=== PATIENT | female | born 1945 | race Caucasian/White ===

== ENCOUNTER 2017-06-28 07:06 | Observation (INO) | payer MEDICARE ==
--- NOTE | 2017-06-25 02:14 | HP ---
AMENDED REPORT NOW INCLUDES COSIGNER DESIGNATION CC: Connie Montemayor MD, at [facility]; Saritha Alfred MD, at [facility] * ADMISSION HISTORY AND PHYSICAL: DATE OF ADMISSION: 06/28/17 ATTENDING SURGEON: Estela Lopez MD * (DICTATED BY LOYDA WILLIAMSON) CHIEF COMPLAINT: Right breast cancer. HISTORY OF PRESENT ILLNESS: This is a 71-year-old female who around December of this year noted some nipple changes of the right breast. Specifically, she noted that the nipple was becoming more inverted. She had not had any prior history of that. She also noted some new lumpiness of the right breast. She had undergone routine screening mammography in October 2016, which was a negative study. She was seen by Dr. Lopez in March of this year and sent for diagnostic mammogram and ultrasound, both of which were unrevealing. Because of persistent changes, an MRI was obtained on 05/22/17 showing a mass at the 12 o'clock position of the right breast measuring 3.2 x 2.2 x 2.1 cm and located 5 cm from the nipple. There were noted to be additional smaller lesions, which also showed persistent enhancement; in addition, a small area of persistent enhancement was noted in the left breast at the 5:30 position measuring 0.4 cm and located 3 cm from the nipple. Recommendation was for 6-month followup with repeat MRI. Ultrasound-guided biopsy of the MRI image lesion of the right breast was performed on 06/12/17 showing invasive lobular carcinoma (see separate report). The patient has had prior stereotactic biopsy of the left breast for microcalcifications in 2014. This biopsy was benign and the area of microcalcifications was in the inferomedial aspect of the left breast. She has not had any additional personal breast history. She has a niece who recently underwent bilateral mastectomy for perilobular carcinoma. She also has a paternal first cousin, living, with ovarian cancer. The patient was seen most recently today and on 06/14/[address] Lopez, who has discussed with her the indications for surgery, the risks, benefits, and alternatives. She has declined offer for plastic surgery referral for possible reconstruction. She would like to proceed as scheduled with right mastectomy with sentinel lymph node biopsy. She does have a Medical Oncology consultation with Dr. Alfred tomorrow, 06/25/17. PAST MEDICAL HISTORY: 1. Hypothyroidism (status post right hemithyroidectomy for papillary carcinoma) . 2. Hyperlipidemia. 3. Depression. PAST SURGICAL HISTORY: Previous surgeries include right hemithyroidectomy with isthmusectomy in 2008 for papillary carcinoma. She did not require any additional therapy. She is maintained on thyroid replacement. She also underwent ANYA with BSO for endometrial disease with prior resection of an endometrial related cyst. She is also status post tonsillectomy and pilonidal cystectomy. No reported surgical or anesthesia problems. CURRENT MEDICATIONS: 1. Levothyroxine 75 mcg once daily. 2. Atorvastatin 10 mg 1 half tablet once daily. 3. Sertraline 50 mg 1-1/2 tablets daily. 4. Aspirin 81 mg daily (she has stopped for surgery, her last dose being ). 5. Fish oil 1000 mg once daily. 6. Vitamin D 2000 IU once daily. 7. Multivitamin once daily. 8. Vitamin B12 1000 mcg sublingual every other day. She also takes the following supplements: flaxseed, sonia seed, psyllium, and cinnamon. DRUG ALLERGIES: None known. FAMILY HISTORY: As noted above. No reported family history of anesthesia problems, bleeding or clotting disorders. SOCIAL HISTORY: The patient is single and lives alone. 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 She denies other recreational drug use. REVIEW OF SYSTEMS: General: No recent constitutional symptoms or acute illnesses other than described above. She did have a recent presumed bug bite to the posterior aspect of her right lower extremity with associated pruritus, but this seems to be improving. HEENT: No problems reported. Cardiovascular: She was evaluated for chest pain around 2012 and had a negative nuclear stress test at that time. She has had good exercise tolerance since then with no additional problems reported. Respiratory: No history of asthma, chronic cough, or shortness of breath. GI: No problems reported. Colonoscopy done on 06/10/17 with normal report and no further colonoscopy screening indicated. : No problems reported. Endocrine: Thyroid replacement as noted above with surveillance thyroid ultrasound on a prescribed basis. No history of diabetes. Musculoskeletal: She does have a history of osteoporosis, but no related fractures. She is fairly active in terms of weightbearing exercise. PHYSICAL EXAMINATION GENERAL: Well-nourished, well-developed female in no acute distress. VITAL SIGNS: Height 64 inches, weight 145 pounds, blood pressure 100/68, pulse 78, respirations 16. HEENT: Pupils are equal, round, and reactive. EOMs intact. No conjunctival pallor. Oropharynx: Teeth in good repair. No intraoral lesions. NECK: No lymphadenopathy, thyromegaly, or masses. LUNGS: Clear to auscultation. No rales or wheezes. HEART: Regular rate and rhythm. No murmur noted. BREASTS: Not re-examined. Per Dr. Lopez's exam most recently, there was some resolving ecchymosis in the medial aspect of the right breast. There is some thickening in the area superior to the nipple, which is notable for inversion. No other palpable masses. No palpable axillary lymphadenopathy. ABDOMEN: Soft, nontender to palpation. No palpable masses or organomegaly. GENITALIA: Not done. RECTAL: Not done. BACK: No spinous process or CVA tenderness. EXTREMITIES: No edema. NEUROLOGICAL: Grossly intact. SKIN: Warm and dry. No suspicious rashes or lesions noted. There is an area of erythema around a presumed insect bite in the posterior aspect of her right leg. The area of erythema measuring approximately 2 x 4 cm. There is no evidence of cellulitis. IMPRESSION: Right breast cancer. PLAN: Right mastectomy with sentinel lymph node biopsy. LOYDA WILLIAMSON ORIGINAL ESIGN DATE/TIME: 06/25/17 0828 [id number] #: [id number] MTDD
[~2017-06-28 07:06] MED LIST: Buffered Lidocaine 0.9% SYRIN* 5 ML/SYR SYRINGE INTRADERM ONE; Famotidine IV* 10 MG/ML 2 ML (20 mg) IV ONE
[2017-06-28] MEDS ORDERED: Lidocaine 2.5%/Prilocain 2.5%* 5 GM TUBE ONE (07:14)
[2017-06-28] MEDS ORDERED: Heparin VIAL(*) 5000 UNITS/ML VIAL (FIVE THOUSAND) ONE (11:51)
[2017-06-28] MEDS ORDERED: Famotidine IV* 10 MG/ML 2 ML (20 mg) ONE (11:51)
[2017-06-28] MEDS ORDERED: ceFAZolin 2 GM PREMIX(*) 2 GM/50 ML BAG IVPB ONE (11:51)
--- NOTE | 2017-06-28 12:04 | RAD ---
Indication: Right breast cancer. Gladstone node localization was performed after intravenous injection 0.3 mCi of technetium 99m sulfur colloid. At 3 hours there is no evidence of a sentinel lymph node. IMPRESSION: Gladstone lymph node could not be localized.
[2017-06-28] MEDS ORDERED: Methylene Blue 1% (ANTIDOTE)* 10 MG/ML 1 ML SDV VIAL IVPB ONE (12:05)
[2017-06-28] MEDS ORDERED: Methylene Blue 0.5 %* 50 MG/10 ML AMP IV ONE (12:06)
[2017-06-28] MEDS ORDERED: oxyCODONE TAB* 5 MG TAB PO PRN (12:20)
[2017-06-28] MEDS ORDERED: DiMENhydriNATE IV* 50 MG/ML VIAL IV PUSH PRN (12:20)
[2017-06-28] MEDS ORDERED: Acetaminophen IV 1GM/100ML * 100 ML IVPB ONE (12:20)
[2017-06-28] MEDS ORDERED: HYDROmorphone* 1 MG/ML 1 ML SYR IV PRN (12:20)
[2017-06-28] MEDS ORDERED: Lidocaine 1% INJ* 10 MG/ML 30 ML SDV ONE (12:24)
[2017-06-28] MEDS ORDERED: Bupivacaine 0.5% W/EPI SDV* 10 ML VIAL INJ ONE (12:24)
[2017-06-28] MEDS ORDERED: Midazolam* 1 MG/ML 5 ML VIAL (5 MG) ONE (12:42)
[2017-06-28] MEDS ORDERED: fentaNYL* 50 MCG/ML 2 ML VIAL (100 MCG VIAL) ONE ×2 (12:50→13:40)
[2017-06-28] MEDS ORDERED: Bupivacaine 0.25% SDV* 30 ML ONE (12:57)
[2017-06-28] MEDS ORDERED: Propofol* 10 MG/ML 20 ML BTL IV PUSH ONE (13:04)
[2017-06-28] MEDS ORDERED: Dexamethasone IV* 4 MG/ML 1 ML (4 MG) ONE (13:04)
[2017-06-28] MEDS ORDERED: Ondansetron INJ* 2 MG/ML VIAL ONE (13:04)
[2017-06-28] MEDS ORDERED: Ketorolac INJ* 30 MG/ML 1 ML VIAL ONE (13:04)
[2017-06-28] MEDS ORDERED: DiMENhydriNATE IV* 50 MG/ML VIAL ONE (13:04)
[2017-06-28] MEDS ORDERED: Lidocaine 2% PF * 5 ML VIAL ONE (13:04)
[2017-06-28] MEDS ORDERED: Acetaminophen IV 1GM/100ML * 100 ML ONE (14:51)
--- NOTE | 2017-06-28 14:55 | PN ---
Progress Note - Progress Note Date of Service: 06/28/17 Note: Brief Operative Note: Preop Dx: Right Breast Cancer Postop Dx: same Procedure: Right mastectomy w/ sentinel node bx Anesthesia: GET Surgeon: John Asst: LOYDA Pathak EBL: 50 ml Fluids: 800 ml Drains: 1 VICENTA Specimen: Right Breast; sentinel node Findings: dictated
[2017-06-28] MEDS ORDERED: Acetaminophen TAB* 325 MG PO PRN (15:08)
[2017-06-28] MEDS ORDERED: HYDROcodone/ACETAMIN 5-325 MG* 1 TAB PO PRN ×2 (15:08)
[2017-06-28] MEDS ORDERED: Ondansetron INJ* 2 MG/ML VIAL IV PRN (15:09)
[2017-06-28] MEDS ORDERED: Sertraline* 25 MG TAB PO SCH (18:00)
--- NOTE | 2017-06-29 03:52 | OP ---
CC: Dr. Connie Montemayor; Dr. Saritha Alfred * DATE OF OPERATION: 06/28/17 - ROOM #[id number] DATE OF : 43 SURGEON: Dr. Lopez. DEVELOPMENTAL MATHEMATICS PROFESSOR: LOYDA Barakat ANESTHESIOLOGIST: Mery Christine MD ANESTHESIA: General PRE-OP DIAGNOSIS: Right breast cancer. POST-OP DIAGNOSIS: Right breast cancer. OPERATIVE PROCEDURE: Right mastectomy and sentinel node biopsy. INDICATIONS: This is a 71-year-old woman with a recently diagnosed breast cancer who has opted for mastectomy and sentinel node biopsy on the morning of surgery. An attempt was made at radioactive localization of the sentinel node, which was unsuccessful. Therefore, in the holding area before surgery, she was injected with blue dye as well. DESCRIPTION OF PROCEDURE: She was then brought to the operating room, placed on the OR table in a supine position and given general anesthesia. The right breast and axilla were prepped and draped in the usual sterile fashion. An incision was made in the superior breast and subcutaneous tissue was divided with electrocautery to create flaps medially to the sternum, superiorly to the clavicle, and laterally to the latissimus dorsi muscle. Then an inferior incision was made encompassing the nipple areolar complex and again subcutaneous tissue was divided with electrocautery medially to the sternum, inferiorly to the rectus muscle, and laterally to the latissimus dorsi muscle. The breast was then elevated off the chest wall and dissected from the chest wall using electrocautery. At the point that the axilla was reached, check was made for radioactivity and blue dye localization of the sentinel nodes. There initially appeared to be some radioactivity, but this was relatively minimal and the node that was in question also had blue dye and so when removed from the axilla it did not have any counts, but did have the blue dye staining in, was labelled as blue dye sentinel node #1. A second node was thought to have some radioactivity, but when removed it had neither blue dye nor radioactivity, so this was labelled nonsentinel node and finally a third node had some additional blue dye staining, this was labelled blue dye sentinel node #2. No additional either radioactive or blue stained nodes were identified, so the remaining attachments were divided between clips and the specimen was marked in the usual fashion and handed off. Hemostasis was assured with electrocautery. A VICENTA drain was placed under the mastectomy flaps through a stab wound in the anterior inferior axillary line and then closure was accomplished. This was done with 2-0 Polysorb in the subcutaneous layer and the skin was closed with 4- 0 Polysorb in a subcuticular fashion. The VICENTA drain was secured to the chest wall with 3-0 Surgipro stitch. All sponge and instrument counts were correct. Steri-Strips and a dry fluffy dressing were applied. She tolerated the procedure well and was transferred to recovery in a stable condition. [id number]/[facility] #: [id number] MTDD
[2017-06-29] MEDS ORDERED: Levothyroxine TAB* 75 MCG TAB PO SCH (06:00)
--- NOTE | 2017-06-29 07:07 | PN ---
Progress Note - Progress Note Date of Service: 06/29/17 Note: POD 1 s/p right mastectomy, SLN. Feels well, mild pain, tolerating meds well. A little dizzy on ambulating last night. BP a little low. VICENTA bloody, moderate drainage. Voiding well Serina po's. Right chest with moderate clavicular ecchymosis. Flaps look good, no collection. Continue ZEYAD wrap. Discharge if able to ambulate steadily and BP OK. F/U in office Mon 07/01 to check drain, look for hematoma. (She will call sooner if it increases.)
[2017-06-29] MEDS: Heparin VIAL(*) 5000 UNITS/ML VIAL (FIVE THOUSAND) SUBCUT SCH ×2 (07:19→12:39)
[2017-06-29 11:37] VITALS: BP 98/44
== END 2017-06-29 13:25 | disposition home or self-care (01) ==
LOC: OR 07:06 → SSU 16:23
PROVIDERS: ADMIT Surgery; ATTEND Surgery
DX: C50.411 Malignant neoplasm of upper-outer quadrant of right female breast (principal); C77.3 Secondary and unspecified malignant neoplasm of axilla and upper limb lymph nodes; E03.9 Hypothyroidism, unspecified; E78.5 Hyperlipidemia, unspecified; F32.9 Major depressive disorder, single episode, unspecified; Z79.82 Long term (current) use of aspirin
CPT/HCPCS: 78195; 88307; 88309; 88342; 96375; A9270-GY; A9541; G0378; J0690; J1100; J1240; J1644; J1885; J2001; J2250; J2405; J2704; J3010

== ENCOUNTER 2017-08-22 10:44 | Day surgery (SDC) | payer MEDICARE ==
--- NOTE | 2017-08-20 17:24 | HP ---
CC: Dr. Connie Montemayor at [facility]; Dr. Saritha Alfred at [facility]; Dr. Patrice Barragan* ADMISSION HISTORY AND PHYSICAL: DATE OF ADMISSION: 08/22/17 ATTENDING SURGEON: Jam Mendez MD* (dictated by LOYDA Barakat). CHIEF COMPLAINT: Right breast cancer with need for IV access for chemotherapy. HISTORY OF PRESENT ILLNESS: This is a 71-year-old generally healthy female who underwent right mastectomy with axillary lymph node dissection with Dr. Lopez on 06/28/17. Her pathology revealed a 4.5 cm invasive lobular carcinoma with clear margins but with 11 of 11 axillary lymph nodes positive for malignant disease. Her postoperative course was complicated by wound infection, for which she was treated with Keflex and wound packing. Packing was discontinued on 08/13/17, and since that time the remaining wounds have closed and there is no further drainage. She denies any fever or other signs of infection at the present time. She did have a CT scan of the chest, abdomen, and pelvis which was negative for evidence of distant metastatic disease. She underwent prechemotherapy echo recently, which was a normal study. Family history is positive for breast cancer in her niece, who is apparently BRCA negative; also positive for ovarian cancer in a paternal first cousin. The patient herself had a prior left stereotactic breast biopsy for microcalcifications, which was benign in 2014. She met recently with Dr. Mendez who outlined the indications for PowerPort placement, the risks, benefits, and alternatives, and she would like to proceed as scheduled with PowerPort placement. PAST MEDICAL HISTORY: Right breast cancer as above, hypothyroidism (status post right hemithyroidectomy for papillary carcinoma), hyperlipidemia, depression. PAST SURGICAL HISTORY: Previous surgeries include the aforementioned right mastectomy and axillary dissection, right hemithyroidectomy with isthmusectomy in 2008, ANYA with BSO for endometrial disease with prior resection of an endometrial related cyst, left breast biopsy as noted above, status post tonsillectomy, pilonidal cystectomy. No personal history of anesthesia or surgical problems. CURRENT MEDICATIONS: 1. Levothyroxine 75 mcg once daily. 2. Atorvastatin 10 mg 1/2 tablet once daily. 3. Sertraline 50 mg 1-1/2 tablets once daily. 4. Fish oil 1000 mg once daily. 5. Vitamin D 2000 International Units once daily. 6. Multivitamin once daily. 7. Vitamin B12 1000 mcg sublingual every other day. She also takes the following supplements: 1. Flaxseed. 2. Juan Manuel seed. 3. Psyllium. 4. Cinnamon. DRUG ALLERGIES: None known. FAMILY HISTORY: As noted above. No family history of anesthesia problems, bleeding, or clotting disorder. SOCIAL HISTORY: The patient is single and lives alone. 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 She denies other recreational drug use. REVIEW OF SYSTEMS: General: As noted in the HPI. No additions. Her weight has been stable. HEENT: No problems reported. Cardiovascular: She had an evaluation in 2013 for chest pain and a negative stress test at that time. Recent echo as noted above. No recent problems reported. Respiratory: No history of asthma, chronic cough, or shortness of breath. GI: No problems reported. Colonoscopy done on 06/10/17 with normal report and no further screening indicated. : No problems reported. Endocrine: Thyroid replacement as noted above with surveillance thyroid ultrasound. No history of diabetes. Musculoskeletal: She does have a history of osteoporosis, but no related fractures. PHYSICAL EXAMINATION GENERAL: Well-nourished, well-developed female in no acute distress. VITAL SIGNS: Height 64 inches, weight 145 pounds. Temperature 98.4, blood pressure 118/74, pulse 68, respirations 16. HEENT: Pupils are equal, round, reactive. EOMs intact. No conjunctival pallor. Oropharynx: Teeth in good repair. No intraoral lesions. NECK: No lymphadenopathy, thyromegaly, or masses. Well-healed surgical scar. LUNGS: Clear to auscultation. No rales or wheezes. HEART: Regular rate and rhythm. No murmur noted. BREASTS: Status post right mastectomy, wound edges were well approximated. There are no open wounds. There is no drainage, no erythema or tenderness. Left breast not examined. No palpable right axillary masses or adenopathy. ABDOMEN: Soft, nontender to palpation. No palpable masses or organomegaly. GENITALIA: Not done. RECTAL: Not done. BACK: No spinous process or CVA tenderness. EXTREMITIES: No edema. NEUROLOGICAL: Grossly intact. SKIN: Warm and dry. No suspicious rashes or lesions (see also above for breast exam). IMPRESSION: Right breast cancer with need IV access for chemotherapy. PLAN: PowerPort placement. LOYDA BARAKAT [id number]/[facility] #: [id number] [facility] [facility]
[2017-08-22] MEDS ORDERED: Buffered Lidocaine 0.9% SYRIN* 5 ML/SYR SYRINGE ONE (11:16)
[2017-08-22] MEDS ORDERED: Famotidine IV* 10 MG/ML 2 ML (20 mg) ONE (11:16)
[2017-08-22] MEDS ORDERED: Midazolam* 1 MG/ML 5 ML VIAL (5 MG) ONE (11:23)
[2017-08-22] MEDS ORDERED: fentaNYL* 50 MCG/ML 2 ML VIAL (100 MCG VIAL) ONE (11:23)
[2017-08-22] MEDS ORDERED: ceFAZolin 2 GM PREMIX (*) 100 ML IVPB ONE (11:36)
[2017-08-22] MEDS ORDERED: Lidocaine 1% INJ* 10 MG/ML 30 ML SDV ONE (11:39)
[2017-08-22] MEDS ORDERED: ceFAZolin 2 GM PREMIX (*) 50 ML IVPB ONE (11:42)
[2017-08-22] MEDS ORDERED: oxyCODONE TAB* 5 MG TAB PO PRN (11:57)
[2017-08-22] MEDS ORDERED: DiMENhydriNATE IV* 50 MG/ML VIAL IV PUSH PRN (11:57)
[2017-08-22] MEDS ORDERED: Acetaminophen TAB* 325 MG PO PRN (11:57)
[2017-08-22] MEDS ORDERED: Propofol* 10 MG/ML 20 ML BTL IV PUSH ONE (12:31)
[2017-08-22] MEDS ORDERED: Ondansetron INJ* 2 MG/ML VIAL ONE (12:31)
[2017-08-22] MEDS ORDERED: Lidocaine 2% PF * 5 ML VIAL ONE (12:31)
[2017-08-22 13:59] VITALS: BP 127/78
--- NOTE | 2017-08-22 14:19 | RAD ---
INDICATION: Left-sided catheter placement COMPARISON: None TECHNIQUE: An AP portable view obtained at 1348 hours is submitted. FINDINGS: Bones/Soft Tissues: There are no acute bony findings. There is a left-sided Scmcuq-y-Oekw catheter terminating in the superior vena cava. Cardiomediastinal: The cardiomediastinal silhouette is normal. Lungs: There are no infiltrates. There is no pneumothorax. Pleura: There are no pleural effusions. Other: None IMPRESSION: LEFT-SIDED PORTACATHETER. LUNGS CLEAR. NO PNEUMOTHORAX.
--- NOTE | 2017-08-22 14:36 | RAD ---
INDICATION: Bjopmf-h-Hjul catheter insertion COMPARISON: None FINDINGS: 8.4 seconds of fluoroscopy were provided for the surgical department. Fluoroscopic spot imaging of the chest were obtained for operative control and show a normal course of the catheter which terminates in the superior vena cava. A follow-up chest x-rays pending . CPT II Codes: 6045F (fluoro time doc)
--- NOTE | 2017-08-23 09:09 | OP ---
CC: Jam Mendez MD; Dr. Saritha Alfred; Dr. Patrice Barragan; [facility]* OPERATIVE REPORT: DATE OF OPERATION: 08/22/17 - [facility] DATE OF : 43 SURGEON: Jam Mendez MD PROPERTY DISPOSAL OFFICER: None. ANESTHESIOLOGIST: Dr. Christine. ANESTHESIA: LMAC anesthesia. PRE-OP DIAGNOSIS: Carcinoma of the breast. POST-OP DIAGNOSIS: Carcinoma of the breast. OPERATIVE PROCEDURE: Placement of subclavian 8-Yi PowerPort. DESCRIPTION OF PROCEDURE: The patient was supine on the operating room table. After adequate intravenous sedation, compression stockings, Jess Hugger warmer, and intravenous antibiotics the left neck and chest region were prepped with antiseptic, draped in a sterile fashion. Local infiltrative anesthesia was administered. A 3 cm incision was created, inferior pocket was created. Subclavian venipuncture was carried out. Guidewire was passed under fluoroscopic guidance. Catheter passed through the peel-away introducer, measured, and cut at 27 cm. It was attached to the port, which was sutured into pocket with 2-0 Prolene. Pocket was closed with 3-0 and 5-0 Polysorb followed by Steri-Strips. The port is accessed, there was good blood return, flushed with saline and heparinized solution. She was then brought to Recovery in good condition. There were no complications. No drains. No pathologic specimens. Sponge and instrument counts correct. Estimated blood loss was 10 mL. [id number]/[facility] [place] #: [id number] [facility]
== END 2017-08-22 14:12 | disposition home or self-care (01) ==
LOC: OR 10:44
PROVIDERS: ATTEND Surgery
DX: C50.411 Malignant neoplasm of upper-outer quadrant of right female breast (principal); C77.3 Secondary and unspecified malignant neoplasm of axilla and upper limb lymph nodes; E03.9 Hypothyroidism, unspecified; E78.5 Hyperlipidemia, unspecified; Z23 Encounter for immunization; C50.111 Malignant neoplasm of central portion of right female breast; Z17.0 Estrogen receptor positive status [ER+]
CPT/HCPCS: C1788; G0008; G8427; J0690; J1642; J2001; J2250; J2405; J2704; J3010

== ENCOUNTER 2018-11-23 14:58 | Emergency (ER) | payer MEDICARE ==
[2018-11-23 15:34] LABS: ABS Basophils 0 10^3/ul (0-0.2); ABS Eosinophils 0 10^3/ul (0-0.6); ABS Lymphocytes 0.9 10^3/ul (1.0-4.8); ABS Monocytes 0.3 10^3/ul (0-0.8); ABS Neutrophils 3.7 10^3/ul (1.5-7.7); ABS Nucleated RBC 0 10^3/ul; Eosinophil % 0.8 %; Hematocrit 33 % (35-47); Hemoglobin 11.3 g/dl (12.0-16.0); Lymphocyte % 18.4 %; Mean Corpuscular HGB Conc 35 g/dl (31-36); Mean Corpuscular Hemoglobin 34 pg (27-31); Mean Corpuscular Volume 97 fL (80-97); Mean Platelet Volume 7.1 fL (7.4-10.4); Nucleated Red Blood Cells % 0.1; Platelet Count 135 10^3/ul (150-450); Red Blood Count 3.34 10^6/ul (4.00-5.40); Red Cell Distribution Width 13 % (10.5-15)
[2018-11-23 15:50] LABS: Albumin 3.5 g/dL (3.2-5.2); Albumin/Globulin Ratio 1.5 (1-3); Calcium 8.8 mg/dL (8.6-10.3); EGFR Non-African American 71.3 (>60); Globulin 2.4 g/dL (2-4); Potassium 3.7 mmol/L (3.5-5.0); Total Bilirubin 0.3 mg/dL (0.2-1.0); Total Protein 5.9 g/dL (6.4-8.9)
--- NOTE | 2018-11-23 17:02 | ED ---
HPI Chest Pain - HPI Summary HPI Summary: The patient is a 73 y/o F presenting to [facility] with a chief complaint of aching right-sided chest pain with breathing sudden onset yesterday. The pain is located from her right neck extending to the right anterior chest and into the right lateral chest. She is concerned for another pleural effusion, which she was diagnosed with in December 2017, but it was drained without malignancy. She additionally c/o fatigue and intermittent coughing without blood. She denies SOB and heart palpitations. There are no aggravating or alleviating factors. She reports a right-sided mastectomy due to breast CA. She also notes that she fell in July 2018 on her left side, but she healed quickly. Dr. Alfred told her to present to the ED to rule out PE. - History of Current Complaint Chief Complaint: EDChestWallPain Time Seen by Provider: 11/23/18 15:16 Hx Obtained From: Patient Onset/Duration: Started Hours Ago - yesterday, Still Present Timing: Intermittent - with breathing, Lasting Hours - since yesterday Initial Severity: Moderate Current Severity: Mild Pain Intensity: 0 Pain Scale Used: 0-10 Numeric Chest Pain Location: Right Anterior, Right Lateral Chest Pain Radiates: Yes Chest Pain Radiates To:: Neck - right Character: Dull/Aching Aggravating Factor(s): Nothing Alleviating Factor(s): Nothing Associated Signs and Symptoms: Positive: Chest Pain, Cough - intermittent, no blood, Other: - POSITIVE: fatigue; NEGATIVE: heart palpitations. Negative: Shortness of Breath - Allergy/Home Medications Allergies/Adverse Reactions: Allergies Allergy/AdvReac Type Severity Reaction Status Date / Time No Known Allergies Allergy Verified 11/23/18 15:11 PMH/Surg Hx/FS Hx/Imm Hx Endocrine/Hematology History: Reports: Hx Thyroid Disease - thyroid cancer Denies: Hx Diabetes Cardiovascular History: Denies: Hx Hypertension, Hx Pacemaker/ICD History: Denies: Hx Renal Disease Musculoskeletal History: Reports: Hx Osteoporosis Sensory History: Reports: Hx Cataracts - has, Hx Contacts or Glasses - glasses Denies: Hx Hearing Aid Opthamlomology History: Reports: Hx Cataracts - has, Hx Contacts or Glasses - glasses Psychiatric History: Reports: Hx Depression Denies: Hx Panic Disorder - Cancer History Cancer Type, Location and Year: THYROID Hx Chemotherapy: No Hx Radiation Therapy: No - Surgical History Surgery Procedure, Year, and Place: RIGHT THYROIDECTOMY INCLUDING ISTHMUS; HYSTERECTOMY; TONSILLECTOMY;. PELVIC CYST REMOVED, right mastectomy 06/28/17. Pilonidal cyst removed in 1967 Hx Anesthesia Reactions: No Infectious Disease History: No Infectious Disease History: Denies: Traveled Outside the [place] in Last 30 Days - Family History Known Family History: Negative: Diabetes - Social History Alcohol Use: None Hx Substance Use: No Substance Use Type: Reports: None Hx Tobacco Use: No Smoking Status (MU): Never Smoked Tobacco Have You Smoked in the Last Year: No Review of Systems Positive: Other - fatigue. Negative: Fever, Chills Negative: Erythema Negative: Sore Throat, Nasal Discharge Positive: Chest Pain - right side of neck and right anterior chest moving towards right lateral chest. Negative: Palpitations Positive: Cough - intermittent without blood. Negative: Shortness Of Breath Negative: Abdominal Pain, Vomiting, Nausea Negative: dysuria, hematuria Negative: Myalgia, Edema Negative: Rash Neurological: Other - NEGATIVE: dizziness Negative: Anxious All Other Systems Reviewed And Are Negative: Yes Physical Exam - Summary Physical Exam Summary: Constitutional: Well-developed, Well-nourished, Alert. (-) Distressed Skin: Warm, Dry HENT: Normocephalic; Atraumatic Eyes: Conjunctiva normal Neck: Musculoskeletal ROM normal neck. (-) JVD, (-) Stridor, (-) Tracheal deviation Cardio: Rhythm regular, rate normal, Heart sounds normal; Intact distal pulses; The pedal pulses are 2+ and symmetric. Radial pulses are 2+ and symmetric. (-) Murmur Pulmonary/Chest wall: Effort normal. (-) Respiratory distress, (-) Wheezes, (-) Rales Abd: Soft, (-) epigastric tenderness, (-) Distension, (-) Guarding, (-) Rebound Musculoskeletal: (-) Edema Lymph: (-) Cervical adenopathy Neuro: Alert, Oriented x3 Psych: Mood and affect Normal Triage Information Reviewed: Yes Vital Signs On Initial Exam: Initial Vitals Temp Pulse Resp BP Pulse Ox 98.5 F 88 20 122/61 97 11/23/18 15:03 11/23/18 15:03 11/23/18 15:03 11/23/18 15:03 11/23/18 15:03 Vital Signs Reviewed: Yes Diagnostics - Vital Signs Vital Signs Temp Pulse Resp BP Pulse Ox 11/23/18 15:03 98.5 F 88 20 122/61 97 - Laboratory Lab Results: Lab Results 11/23/18 11/23/18 11/23/18 Range/Units 15:20 15:20 15:20 WBC 5.0 (3.5-10.8) 10^3/ul RBC 3.34 L (4.00-5.40) 10^6/ul Hgb 11.3 L (12.0-16.0) g/dl Hct 33 L (35-47) % MCV 97 (80-97) fL MCH 34 H (27-31) pg MCHC 35 (31-36) g/dl RDW 13 (10.5-15) % Plt Count 135 L (150-450) 10^3/ul MPV 7.1 L (7.4-10.4) fL Neut % (Auto) 73.4 % Lymph % (Auto) 18.4 % Richardson % (Auto) 6.7 % Eos % (Auto) 0.8 % Baso % (Auto) 0.7 % Absolute Neuts (auto) 3.7 (1.5-7.7) 10^3/ul Absolute Lymphs (auto) 0.9 L (1.0-4.8) 10^3/ul Absolute Monos (auto) 0.3 (0-0.8) 10^3/ul Absolute Eos (auto) 0 (0-0.6) 10^3/ul Absolute Basos (auto) 0 (0-0.2) 10^3/ul Absolute Nucleated RBC 0 10^3/ul Nucleated RBC % 0.1 Sodium 134 L (135-145) mmol/L Potassium 3.7 (3.5-5.0) mmol/L Chloride 100 L (101-111) mmol/L Carbon Dioxide 28 (22-32) mmol/L Anion Gap 6 (2-11) mmol/L BUN 15 (6-24) mg/dL Creatinine 0.79 (0.51-0.95) mg/dL Est GFR ( Amer) 86.3 (>60) Est GFR (Non-Af Amer) 71.3 (>60) BUN/Creatinine Ratio 19.0 (8-20) Glucose 128 H (70-100) mg/dL Lactic Acid 1.5 (0.5-2.0) mmol/L Calcium 8.8 (8.6-10.3) mg/dL Total Bilirubin 0.30 (0.2-1.0) mg/dL AST 13 (13-39) U/L ALT 9 (7-52) U/L Alkaline Phosphatase 29 L (34-104) U/L Troponin I 0.00 (<0.04) ng/mL Total Protein 5.9 L (6.4-8.9) g/dL Albumin 3.5 (3.2-5.2) g/dL Globulin 2.4 (2-4) g/dL Albumin/Globulin Ratio 1.5 (1-3) Result Diagrams: 11/23/18 15:20 11/23/18 15:20 Lab Statement: Any lab studies that have been ordered have been reviewed, and results considered in the medical decision making process. - Radiology CXR Radiology Interpretation Completed By: Radiologist Summary of Radiographic Findings: No radiographic evidence for acute cardiopulmonary abnormality on this. portable chest x-ray. ED physician has reviewed this report. - CT Chest/Thorax CTA CT Interpretation Completed By: Radiologist Summary of CT Findings: 1. There are new partially occlusive pulmonary emboli involving the segmental and subsegmental branches of the right lower lobe. 2. There is a focal subpleural infiltrate along the anterolateral margin of the right upper lobe that was not seen on the previous CT examination. This does not correlate to a filling defect of the adjacent segmental pulmonary artery as may be seen in the setting of a wedge infarct. 3. Diffuse mild ground glass density and small right pleural effusion could be seen in the setting of pulmonary edema. 4. Healing rib fractures involving the lateral left fifth, sixth and seventh ribs. ED physician has reviewed this report. - EKG 15:26 Cardiac Rate: NL - 82 BPM EKG Rhythm: Sinus Rhythm Summary of EKG Findings: No STEMI. Re-Evaluation - Re-Evaluation First Eval Re-Evaluation Time: 18:40 Change: Unchanged Comment: I spoke with the patient concering imaging results and admission. Chest Pain Course/Dx - Course Course Of Treatment: The patient is a 73 y/o F presenting to [facility] with a chief complaint of aching right-sided chest pain with breathing sudden onset yesterday. The pain is located from her right neck extending to the right anterior chest and into the right lateral chest. She is concerned for another pleural effusion, which she was diagnosed with in December 2017, but it was drained without malignancy. She additionally c/o fatigue and intermittent coughing without blood. She denies SOB and heart palpitations. There are no aggravating or alleviating factors. She reports a right-sided mastectomy due to breast CA. She also notes that she fell in July 2018 on her left side, but she healed quickly. Dr. Alfred told her to present to the ED to rule out PE. Physical exam is unremarkable. In the ED course, the patient was administered Heparin and Iohexol (for CT). Blood work is unremarkable. EKG and CXR are negative. Chest/Thorax CTA reveals partially occlusive pulmonary emboli and subpleural infiltrate in right lower lobe. She is diagnosed with pulmonary embolism. She understands and agrees with the need for admission. Her risk factors for pulmonary embolism include a history of cancer, also sedentary lifestyle. This lifestyle should be modified, I discussed with her. - Diagnoses Provider Diagnoses: Pulmonary embolism - Provider Notifications Discussed Care Of Patient With: Sally Botello - she agrees to admit the patient , changed to Lovenox. - Critical Care Time Critical Care Time: 30-74 min - 35 minutes of critical care time Discharge - Sign-Out/Discharge Documenting (check all that apply): Patient Departure - Patient will be admitted to [facility] for further care. - Discharge Plan Condition: Stable Disposition: ADMITTED TO [facility] Referrals: Connie Montemayor MD [Primary Care Provider] - - Billing Disposition and Condition Condition: STABLE Disposition: Admitted to [facility] - Attestation Statements Document Initiated by Sita: Yes Documenting Scribe: Jigna Durham Provider For Whom Sita is Documenting (Include Credential): MD Morales Hartmanibe Attestation: Jigna Smith scribed for Dr. David Rubio MD on 11/23/18 at 1921. Scribe Documentation Reviewed: Yes Provider Attestation: The documentation as recorded by the Jigna stanford accurately reflects the service I personally performed and the decisions made by me, Dr. David Rubio MD Status of Scribe Document: Viewed
[2018-11-23] MEDS: Iohexol 350* (CONTRAST) 500 ML MDV IV ONE (17:25)
[2018-11-23] MEDS ORDERED: Heparin DRIP 25,000 UNITS(*) 25,000 UNITS/500 ML BAG IV SCH (18:45)
[2018-11-23 19:57] LABS: C Reactive Protein 24.05 mg/L (<8.01)
[2018-11-23] MEDS ORDERED: Acetaminophen TAB* 325 MG PO PRN (20:18)
--- NOTE | 2018-11-23 20:46 | ED ---
Progress - Progress Note Progress Note: This patient was admitted and Dr. Botello wanted help with the discharge. Dr. Bae was not involved with this patient, as it was Dr. Rubio' patient previously. The patient was diagnosed with a pulmonary embolism and discharged home with a prescription for Eliquis. Course/Dx - Course Course Of Treatment: This patient was admitted and Dr. Botello wanted help with the discharge. Dr. Bae was not involved with this patient, as it was Dr. Rubio' patient previously. The patient was diagnosed with a pulmonary embolism and discharged home with a prescription for Eliquis. - Diagnoses Provider Diagnoses: Pulmonary embolism Discharge - Sign-Out/Discharge Documenting (check all that apply): Patient Departure - DC - Discharge Plan Condition: Stable Disposition: HOME Prescriptions: Apixaban [Eliquis] 5 mg PO BID #60 tab.[id number] Patient Education Materials: Pulmonary Embolism (ED) Referrals: Connie Montemayor MD [Primary Care Provider] - (1-3 days) Additional Instructions: Follow up with your primary care physician in 1-3 days. RETURN TO THE EMERGENCY DEPARTMENT FOR CHANGING OR WORSENING SYMPTOMS. - Billing Disposition and Condition Condition: STABLE Disposition: Home - Attestation Statements Document Initiated by Sita: Yes Documenting Scribe: Rao Hilliard Provider For Whom Sita is Documenting (Include Credential): Peter Bae MD Scribe Attestation: Rao Smith scribed for Peter Bae MD on 11/23/18 at 2050. Scribe Documentation Reviewed: Yes Provider Attestation: The documentation as recorded by the Rao stanford accurately reflects the service I personally performed and the decisions made by Gulshan owens MD Status of Scribe Document: Viewed
[2018-11-23] MEDS: Enoxaparin(*) 80 MG/0.8 ML SYR SUBCUT ONE (21:04)
[2018-11-23] MEDS: Apixaban* 5 MG TAB PO SCH (21:04)
[2018-11-23 21:29] VITALS: BP 120/68
--- NOTE | 2018-11-24 01:15 | CONS ---
CC: Dr. Montemayor; Dr. Alfred* CONSULTATION REPORT: DATE OF CONSULT: 11/23/18 PRIMARY CARE PROVIDER: Dr. Montemayor. ONCOLOGIST: Dr. Alfred. REASON FOR CONSULTATION: Acute pulmonary embolism. Consultation was requested by Dr. Rubio from the emergency department. CHIEF COMPLAINT: Right-sided chest pain. HISTORY OF PRESENT ILLNESS: Bernarda Bowden is a 72-year-old female with history of breast cancer, status post right-sided mastectomy as well as radiation and chemotherapy that ended in January 2018, who presented to the hospital complaining of pleuritic chest pain that had developed over the past couple of days. The patient denies any shortness of breath, cough, or fevers. She stated that the pain was definitely pleuritic and for the night, she took 2 of ibuprofen, but she still continued to have the chest pain when she took a deep breath in the morning. She called Dr. Alfred who recommended for the patient to be evaluated in the emergency department to rule out pulmonary embolism. The patient has had no problems with leg edema or pain. The CT angiogram of the chest showed right-sided pulmonary emboli. The patient otherwise is hemodynamically stable with oxygen saturation of 96% on room air and denies dyspnea on exertion. The consultation was requested to evaluate the patient for admission for acute PE. PAST MEDICAL HISTORY: 1. History of postsurgical hypothyroidism, status post right hemithyroidectomy for papillary carcinoma in 2008. 2. History of right-sided breast cancer, status post mastectomy, chemo and radiation. The patient stated that she had 11/11 lymph nodes positive. 3. History of dyslipidemia. 4. History of depression. 5. History of endometriosis and subsequent total abdominal hysterectomy and bilateral salpingo-oophorectomy. 6. The patient has a history of right-sided pleural effusion that was tapped in December 2017. MEDICATIONS: Include: 1. Vitamin D3 3000 units daily. 2. Citalopram 20 mg daily. 3. Synthroid 88 mcg daily apart from Saturdays when she takes half of tablet which is 44 mcg daily. 4. Tamoxifen 20 mg daily. 5. Fish oil 1 capsule daily. 6. Multivitamin 1 tablet daily. 7. Vitamin B12 1000 units sublingually every other day. ALLERGIES: No known drug allergies. FAMILY HISTORY: Positive for niece who had breast cancer and bilateral mastectomy as well as first cousin with history of ovarian cancer. The patient' s father had history of colon cancer at the age of 72. Mother at the age of 98 with no significant past medical history. SOCIAL HISTORY: The patient is a retired nurse. She lives alone. She denies any tobacco, alcohol, or drug use. For surrogate, she names her brother, Ever Bowden. REVIEW OF SYSTEMS: Please see history of present illness. All the remaining 12 systems were reviewed with the patient and were otherwise negative. PHYSICAL EXAM: Blood pressure of 111/68, heart rate of 72 and regular, respiratory rate 13, oxygen saturation 94% on room air, temperature of 98.5. General: The patient is a very pleasant 72-year-old female who is in no acute distress. Alert, awake, and oriented x3. HEENT: Head: Atraumatic, normocephalic. Eyes: Pupils are equal, reactive to light and accommodation. Oropharynx clear. Mucosa moist. Neck: Supple. No JVD. No bruits bilaterally. Cardiovascular: Regular rate and rhythm. No murmur. Respiratory : Clear to auscultation bilaterally. Abdomen: Soft, nontender. Bowel sounds present in all 4 quadrants. Extremities: There is no edema. Pulses are +2 bilaterally. No clubbing or cyanosis. Negative Homans' sign bilaterally on palpation of bilateral calves. Neuro Evaluation: Speech clear. Cranial nerves II through XII grossly intact. Motor strength is 5/5 bilaterally. DIAGNOSTIC STUDIES/LAB DATA: Laboratory data showed white blood cell count of 5.3, hemoglobin 11.3, hematocrit of 33, MCV of 97, platelets of 135. Sodium was 134, potassium 3.7, chloride 100, carbon dioxide 28, BUN 15, creatinine 0.79. Liver functions unremarkable. C-reactive protein of 24. Troponin of 0. CT angiogram of the chest obtained in the emergency department, impression: "There are new partially occlusive pulmonary emboli involving the segmental and subsegmental branches of the right lower lobe. There is a focal subpleural infiltrate along the anterolateral margin of the right upper lobe that was not seen on the previous CT examination. This does not correlate to the filling defect of the adjacent segmental pulmonary artery as may be seen in the setting of a wedge infarct. Diffuse mild ground-glass density and small right pleural effusion could be seen in the setting of pulmonary edema. Healing rib fractures involving the lateral left fifth, sixth, and seventh ribs." The patient's EKG showed normal sinus rhythm with a heart rate of 82 beats per minute with no significant ST changes. ASSESSMENT AND PLAN: 1. Acute pulmonary embolism. The patient with history of 2 malignancies and most recently breast cancer on the right side. I discussed with Dr. Alfred the patient is going to be prescribed Eliquis with the first dose to be dispensed in the emergency department. She is going to get a tablet of Eliquis to take home to take in the morning and the remaining of her medications are going to be prescribed by the ED provider. The patient is hemodynamically stable and does not necessitate an inpatient hospital stay. 2. In regards to the patient's remaining medications, those should be unchanged. 3. The patient should follow up with Dr. Alfred in approximately 1 week for followup. TIME SPENT: Approximately 62 minutes were spent on consultation of this patient , more than half that time was spent [id number] with the patient during the interview and physical exam. [id number]/CPS #: [id number] MTDD
[2018-11-24] MEDS ORDERED: Enoxaparin(*) 60 MG/0.6 ML SYR SUBCUT SCH (09:00)
== END 2018-11-23 21:56 | disposition home or self-care (01) ==
LOC: ED 14:58
DX: I26.99 Other pulmonary embolism without acute cor pulmonale (principal); E03.9 Hypothyroidism, unspecified; E78.5 Hyperlipidemia, unspecified; F32.9 Major depressive disorder, single episode, unspecified; Z85.3 Personal history of malignant neoplasm of breast; Z85.850 Personal history of malignant neoplasm of thyroid; M81.0 Age-related osteoporosis without current pathological fracture
CPT/HCPCS: 36415; 71045; 71275; 80053; 83605; 84145; 84484; 85025; 85730; 86140; 93005; 96374; 96375; 99283; Q9967